=== PATIENT | male | born 1955 | race Caucasian/White ===

== ENCOUNTER 2020-10-31 17:42 | Inpatient (IN) | payer MEDICARE ==
[~2020-10-31] VITALS: Ht 170.2 cm; Wt 65.8 kg
[2020-10-31 18:54] LABS: MEAN CORPUSCULAR HEMOGLOBIN 29.7 pg (28.0-32.0); MEAN CORPUSCULAR VOLUME 89.6 fL (80.0-94.0); MEAN PLATELET VOLUME 8.2 fl (7.4-10.4); PLATELET 504 x1000/uL (130-400); RED BLOOD CELL COUNT 2.29 mill/uL (4.7-6.1); RED CELL DISTRIBUTION WIDTH 15.3 % (11.6-14.6)
[2020-10-31 18:59] LABS: HEMATOCRIT. 20.5 % (42.0-52.0); HEMOGLOBIN. 6.8 g/dL (14.0-18.0)
[2020-10-31 19:11] LABS: CHLORIDE 101 mEq/L (98-107)
[2020-10-31 20:07] LABS: PLATELET ESTIMATE INCREASED
[2020-10-31] MEDS ORDERED: IOHEXOL-350 100 ML BOTTLE ONE (22:56)
[2020-11-01] VITALS (13 sets, daily range): BP systolic 97–164; BP diastolic 41–82
[2020-11-01] MEDS ORDERED: MORPHINE SULFATE 2 MG/ML CPJ (NOT FOR IM USE) IV PRN (03:45)
[2020-11-01] MEDS ORDERED: HYDROCODONE/ACETAMINOPHEN 5/325MG TABLET PO PRN (06:15)
[2020-11-01] MEDS ORDERED: ONDANSETRON HCL 4MG/2ML INJ IV PRN (06:15)
[2020-11-01] MEDS ORDERED: DIPHENHYDRAMINE 50MG/ML VIAL IV PRN (06:15)
[2020-11-01] MEDS ORDERED: MAGNESIUM/ALUMINUM HYDROXIDE/SIMETHICONE 30ML UDC PO PRN (06:15)
[2020-11-01] MEDS ORDERED: GUAIFENESIN 200MG/10ML SUGAR FREE UDC PO PRN (06:15)
[2020-11-01] MEDS ORDERED: CLONIDINE 0.1MG TABLET PO PRN (06:15)
[2020-11-01] MEDS ORDERED: IPRATROPIUM/ALBUTEROL 0.5-3(2.5)MG/3ML NEB HHN PRN (06:15)
[2020-11-01] MEDS ORDERED: LORAZEPAM 2MG/ML CPJ IV PRN (06:15)
[2020-11-01 10:50] LABS: HEMATOCRIT. 21.2 % (42.0-52.0); HEMOGLOBIN. 7.1 g/dL (14.0-18.0); MEAN CORPUSCULAR VOLUME 90.1 fL (80.0-94.0); MEAN PLATELET VOLUME 8.3 fl (7.4-10.4); PLATELET 434 x1000/uL (130-400); RED BLOOD CELL COUNT 2.35 mill/uL (4.7-6.1); RED CELL DISTRIBUTION WIDTH 15.3 % (11.6-14.6)
[2020-11-01 11:05] LABS: TOTAL IRON BINDING CAPACITY 168 ug/dL (250-450)
[2020-11-01 11:34] LABS: FOLIC ACID (FOLATE) SERUM 6.9 ng/mL (>5.38)
[2020-11-01] MEDS ORDERED: INFLUENZA VACCINE 05/PF 0.5 ML VIAL IM ONE (12:00)
[2020-11-01 14:00] LABS: PLATELET ESTIMATE SLIGHTLY INCREASED
[2020-11-01] MEDS: SODIUM CHLORIDE 0.9% INJ 3ML FLUSH IVF SCH ×2 (16:00→20:53)
[2020-11-01] MEDS: DOCUSATE SODIUM 100MG CAPSULE PO PRN (16:00)
[2020-11-01] MEDS: OMEPRAZOLE 20MG CAPSULE EXTENDED RELEASE PO SCH (16:00)
[2020-11-01] MEDS: HYDRALAZINE 20MG/ML VIAL IV PRN (16:08)
[2020-11-01 16:25] LABS: CREATINE KINASE MB FRACTION 2.8 ng/mL (0.5-3.6)
[2020-11-01] MEDS: ACETAMINOPHEN 325MG TABLET PO PRN (17:15)
[2020-11-02] VITALS (19 sets, daily range): BP systolic 127–155; BP diastolic 48–99
[2020-11-02 00:43] LABS: HEMATOCRIT 21.4 % (42.0-52.0)
[2020-11-02 00:46] LABS: HEMOGLOBIN 6.9 g/dL (14.0-18.0)
[2020-11-02 00:48] LABS: CREATINE KINASE MB FRACTION 2.4 ng/mL (0.5-3.6)
[2020-11-02] MEDS: SODIUM CHLORIDE 0.9% INJ 3ML FLUSH IVF SCH ×3 (06:00→21:16)
[2020-11-02 07:12] LABS: HEMATOCRIT. 21.6 % (42.0-52.0); HEMOGLOBIN. 7.2 g/dL (14.0-18.0); MEAN CORPUSCULAR HEMOGLOBIN 29.9 pg (28.0-32.0); MEAN CORPUSCULAR VOLUME 89.6 fL (80.0-94.0); MEAN PLATELET VOLUME 8.3 fl (7.4-10.4); PLATELET 385 x1000/uL (130-400); RED BLOOD CELL COUNT 2.41 mill/uL (4.7-6.1)
[2020-11-02 08:04] LABS: CHLORIDE 106 mEq/L (98-107)
[2020-11-02] MEDS: POLYETHYLENE GLYCOL 3350 (17GM) 1 DOSE PACK PO SCH (08:30)
[2020-11-02] MEDS: OMEPRAZOLE 20MG CAPSULE EXTENDED RELEASE PO SCH (08:30)
[2020-11-02] MEDS ORDERED: SENNOSIDES/DOCUSATE SOD 8.6/50MG TABLET PO PRN (10:30)
[2020-11-02] MEDS: DOCUSATE SODIUM 100MG CAPSULE PO PRN (10:33)
[2020-11-02 11:11] LABS: HEMATOCRIT 26.4 % (42.0-52.0); HEMOGLOBIN 8.7 g/dL (14.0-18.0)
[2020-11-02] MEDS ORDERED: AMLODIPINE 5MG TABLET PO NR (14:00)
[2020-11-02 14:39] LABS: PLATELET ESTIMATE NORMAL
[2020-11-02] MEDS: PANTOPRAZOLE SODIUM 40 MG/VIAL IV SCH (18:23)
[2020-11-03] VITALS (10 sets, daily range): BP systolic 134–160; BP diastolic 56–130
[2020-11-03 05:50] LABS: BASOPHILS % 0.3 % (0.0-2.0); EOSINOPHILS % 1.4 % (0.0-5.0); HEMATOCRIT. 25.5 % (42.0-52.0); HEMOGLOBIN. 8.5 g/dL (14.0-18.0); LYMPHOCYTES % 7.7 % (20.0-50.0); MEAN CORPUSCULAR HEMOGLOBIN 30.3 pg (28.0-32.0); MEAN CORPUSCULAR VOLUME 90.6 fL (80.0-94.0); MEAN PLATELET VOLUME 8.4 fl (7.4-10.4); NEUTROPHILS % 82.6 % (40.0-76.0); PLATELET 414 x1000/uL (130-400); RED BLOOD CELL COUNT 2.82 mill/uL (4.7-6.1); RED CELL DISTRIBUTION WIDTH 15.3 % (11.6-14.6)
[2020-11-03 05:55] LABS: INR 1.1; PROTHROMBIN TIME 11.4 sec (9.6-11.0)
[2020-11-03] MEDS: PANTOPRAZOLE SODIUM 40 MG/VIAL IV SCH ×2 (06:21→18:51)
[2020-11-03] MEDS: SODIUM CHLORIDE 0.9% INJ 3ML FLUSH IVF SCH ×3 (06:21→21:52)
[2020-11-03 06:37] LABS: CHLORIDE 108 mEq/L (98-107)
[2020-11-03 06:42] LABS: HEPATITIS B SURFACE ANTIGEN NEGATIVE
[2020-11-03 06:46] LABS: CREATINE KINASE 549 IU/L (39-308)
[2020-11-03 07:12] LABS: HEPATITIS A AB IGM NEGATIVE (NEGATIVE)
[2020-11-03] MEDS: POLYETHYLENE GLYCOL 3350 (17GM) 1 DOSE PACK PO SCH (08:07)
[2020-11-03] MEDS: AMLODIPINE 5MG TABLET PO SCH (08:07)
[2020-11-03] MEDS ORDERED: MIDAZOLAM HCL 5 MG/5 ML VIAL IV PRN (11:32)
[2020-11-03] MEDS ORDERED: MIDAZOLAM HCL 5 MG/5 ML VIAL ONE (11:32)
[2020-11-03] MEDS ORDERED: FENTANYL CITRATE/PF 50MCG/ML 2ML VIAL ONE (11:32)
[2020-11-03] MEDS ORDERED: FENTANYL CITRATE/PF 50MCG/ML 2ML VIAL IV PRN (11:32)
[2020-11-03] MEDS ORDERED: SORBITOL 70% SOLN 30ML PO ONE (16:30)
[2020-11-03] MEDS ORDERED: SORBITOL 70% SOLN 30ML PO NR (21:00)
[2020-11-04] VITALS (7 sets, daily range): BP systolic 128–148; BP diastolic 57–75
[2020-11-04] MEDS: HYDRALAZINE 20MG/ML VIAL IV PRN (03:37)
[2020-11-04 05:57] LABS: HEMATOCRIT. 26.2 % (42.0-52.0); HEMOGLOBIN. 8.9 g/dL (14.0-18.0); MEAN CORPUSCULAR VOLUME 91.1 fL (80.0-94.0); MEAN PLATELET VOLUME 8.5 fl (7.4-10.4); PLATELET 461 x1000/uL (130-400); RED BLOOD CELL COUNT 2.87 mill/uL (4.7-6.1); RED CELL DISTRIBUTION WIDTH 15.4 % (11.6-14.6)
[2020-11-04 06:00] LABS: INR 1.1; PROTHROMBIN TIME 11.4 sec (9.6-11.0)
[2020-11-04 06:17] LABS: CHLORIDE 110 mEq/L (98-107)
[2020-11-04 06:28] LABS: CREATINE KINASE 257 IU/L (39-308)
[2020-11-04] MEDS ORDERED: SORBITOL 70% SOLN 30ML PO NR (06:30)
[2020-11-04] MEDS: SODIUM CHLORIDE 0.9% INJ 3ML FLUSH IVF SCH ×3 (06:36→22:00)
[2020-11-04] MEDS: PANTOPRAZOLE SODIUM 40 MG/VIAL IV SCH ×2 (06:36→17:13)
[2020-11-04] MEDS: POLYETHYLENE GLYCOL 3350 (17GM) 1 DOSE PACK PO SCH (09:22)
[2020-11-04] MEDS: AMLODIPINE 5MG TABLET PO SCH (09:22)
[2020-11-04 11:23] LABS: PLATELET ESTIMATE MARKEDLY INCREASED
[2020-11-04] MEDS ORDERED: MIDAZOLAM HCL 5 MG/5 ML VIAL IV PRN (18:12)
[2020-11-04] MEDS ORDERED: FENTANYL CITRATE/PF 50MCG/ML 2ML VIAL IV PRN (18:13)
[2020-11-04] MEDS ORDERED: MIDAZOLAM HCL 5 MG/5 ML VIAL ONE (18:16)
[2020-11-04] MEDS ORDERED: FENTANYL CITRATE/PF 50MCG/ML 2ML VIAL ONE (18:16)
[2020-11-04] MEDS: ACETAMINOPHEN 325MG TABLET PO PRN (22:17)
[2020-11-05] VITALS (7 sets, daily range): BP systolic 146–155; BP diastolic 55–72
[2020-11-05] MEDS: PANTOPRAZOLE SODIUM 40 MG/VIAL IV SCH (05:52)
[2020-11-05] MEDS: SODIUM CHLORIDE 0.9% INJ 3ML FLUSH IVF SCH (05:52)
[2020-11-05 06:25] LABS: BASOPHILS % 0.6 % (0.0-2.0); HEMATOCRIT. 23.2 % (42.0-52.0); HEMOGLOBIN. 7.7 g/dL (14.0-18.0); LYMPHOCYTES % 9.8 % (20.0-50.0); MEAN CORPUSCULAR HEMOGLOBIN 30.4 pg (28.0-32.0); MEAN CORPUSCULAR VOLUME 91.7 fL (80.0-94.0); MEAN PLATELET VOLUME 8.6 fl (7.4-10.4); MONOCYTES % 11.6 % (2.0-8.0); PLATELET 452 x1000/uL (130-400); RED BLOOD CELL COUNT 2.53 mill/uL (4.7-6.1); RED CELL DISTRIBUTION WIDTH 15.6 % (11.6-14.6)
[2020-11-05 06:57] LABS: CHLORIDE 111 mEq/L (98-107)
[2020-11-05 07:06] LABS: CREATINE KINASE 190 IU/L (39-308)
[2020-11-05] MEDS: AMLODIPINE 5MG TABLET PO SCH (08:33)
[2020-11-05] MEDS: POLYETHYLENE GLYCOL 3350 (17GM) 1 DOSE PACK PO SCH (08:47)
== END 2020-11-05 19:09 | disposition home health service (06) | DRG 811 ==
LOC: ER 17:42 → 5EST 20:59 → ENRESERV 21:19 → CANRESERV 21:19 → ENRESERV 21:48
PROVIDERS: ADMIT Internal Medicine; ATTEND Internal Medicine
PROC: 0DB78ZX Excision of Stomach, Pylorus, Via Natural or Artificial Opening Endoscopic, Diagnostic (ICD-10-PCS; principal; 2020-10-31)
PROC: 30233N1 Transfusion of Nonautologous Red Blood Cells into Peripheral Vein, Percutaneous Approach (ICD-10-PCS; 2020-11-01)
PROC: 0DBK8ZX Excision of Ascending Colon, Via Natural or Artificial Opening Endoscopic, Diagnostic (ICD-10-PCS; 2020-11-04)
PROC: 0DBP8ZX Excision of Rectum, Via Natural or Artificial Opening Endoscopic, Diagnostic (ICD-10-PCS; 2020-11-04)
DX: D50.9 Iron deficiency anemia, unspecified (principal); E43 Unspecified severe protein-calorie malnutrition; R65.10 Systemic inflammatory response syndrome (SIRS) of non-infectious origin without acute organ dysfunction; M62.82 Rhabdomyolysis; K29.80 Duodenitis without bleeding; K29.70 Gastritis, unspecified, without bleeding; N50.3 Cyst of epididymis; K64.8 Other hemorrhoids; N43.3 Hydrocele, unspecified; R74.01 Elevation of levels of liver transaminase levels; D72.829 Elevated white blood cell count, unspecified; F10.10 Alcohol abuse, uncomplicated; F17.210 Nicotine dependence, cigarettes, uncomplicated; I11.0 Hypertensive heart disease with heart failure; I50.9 Heart failure, unspecified; N28.1 Cyst of kidney, acquired; K44.9 Diaphragmatic hernia without obstruction or gangrene; K62.1 Rectal polyp; K63.5 Polyp of colon; K57.30 Diverticulosis of large intestine without perforation or abscess without bleeding; R00.1 Bradycardia, unspecified; R55 Syncope and collapse; K76.0 Fatty (change of) liver, not elsewhere classified; R77.8 Other specified abnormalities of plasma proteins; R16.2 Hepatomegaly with splenomegaly, not elsewhere classified; Z79.82 Long term (current) use of aspirin; Z79.899 Other long term (current) drug therapy; Z68.22 Body mass index [BMI] 22.0-22.9, adult; Z20.822 Contact with and (suspected) exposure to COVID-19
CPT/HCPCS: 36415; 71045; 74174; 76700; 76870; 80048; 80053; 82270; 82550; 82553; 82607; 82728; 82746; 82962; 83540; 83550; 83735; 83880; 84443; 84450; 84484; 85014; 85018; 85025; 85044; 86705; 86709; 86803; 86850; 86870; 86900; 86920; 87340; 87426; 88305; 88313; 90686; 93005; 93306; 93976; 97162; 97530; 99152; 99153; 99285; C9113; J0360; J2250; J2270; J3010; P9016; Q9967; G0500

== ENCOUNTER 2022-09-09 05:50 | Inpatient (IN) | payer BC, MEDICAID ==
[~2022-09-09] VITALS: Ht 172.7 cm; Wt 69.9 kg
[2022-09-09 06:16] LABS: CHLORIDE 92 mEq/L (98-107)
[2022-09-09 06:18] LABS: BASOPHILS % 0.5 % (0.0-2.0); EOSINOPHILS % 0.1 % (0.0-5.0); HEMATOCRIT. 47.1 % (42.0-52.0); HEMOGLOBIN. 15.9 g/dL (14.0-18.0); LYMPHOCYTES % 7.6 % (20.0-50.0); MEAN CORPUSCULAR HEMOGLOBIN 30.7 pg (28.0-32.0); MEAN CORPUSCULAR VOLUME 91.2 fL (80.0-94.0); MEAN PLATELET VOLUME 7.6 fl (7.4-10.4); MONOCYTES % 7.2 % (2.0-8.0); NEUTROPHILS % 84.6 % (40.0-76.0); PLATELET 268 x1000/uL (130-400); RED BLOOD CELL COUNT 5.17 mill/uL (4.7-6.1); RED CELL DISTRIBUTION WIDTH 13.3 % (11.6-14.6)
[2022-09-09 06:24] LABS: ETHANOL BLOOD < 10 mg/dL
[2022-09-09] MEDS ORDERED: SODIUM CHLORIDE 0.9% 1,000 ML IV ONE (07:00)
[2022-09-09] MEDS ORDERED: IOHEXOL-350 100 ML BOTTLE ONE (07:10)
[2022-09-09] MEDS ORDERED: HYDRALAZINE 20MG/ML VIAL IV NR (11:00)
[2022-09-09] MEDS: HYDRALAZINE HCL 50MG TABLET PO SCH ×2 (14:00→22:24)
[2022-09-09] MEDS: AMLODIPINE 2.5MG TABLET PO SCH ×2 (17:00→21:00)
[2022-09-09] MEDS ORDERED: ACETAMINOPHEN 325MG TABLET PO PRN (17:15)
[2022-09-09] MEDS ORDERED: ONDANSETRON HCL 4MG/2ML INJ IV PRN (17:15)
[2022-09-09] MEDS ORDERED: FUROSEMIDE 40MG/4ML VIAL IVP ONE (17:15)
[2022-09-09] MEDS: ENOXAPARIN 40MG/0.4ML SYR SUBCUT SCH (17:30)
[2022-09-09 22:00] VITALS: BP 137/77
[2022-09-09] MEDS: SODIUM CHLORIDE 0.9% 1,000 ML IV SCH (22:23)
[2022-09-10] VITALS: BP 140/69
[2022-09-10 01:39] LABS: CREATINE KINASE MB FRACTION 4.2 ng/mL (0.5-3.6)
[2022-09-10 04:00] VITALS: BP 112/54
[2022-09-10] MEDS: HYDRALAZINE HCL 50MG TABLET PO SCH ×3 (06:00→21:06)
[2022-09-10 07:28] LABS: BASOPHILS % 0.4 % (0.0-2.0); HEMATOCRIT. 42.2 % (42.0-52.0); HEMOGLOBIN. 14.2 g/dL (14.0-18.0); LYMPHOCYTES % 9.4 % (20.0-50.0); MEAN CORPUSCULAR HEMOGLOBIN 30.5 pg (28.0-32.0); MEAN CORPUSCULAR VOLUME 90.3 fL (80.0-94.0); MEAN PLATELET VOLUME 8.3 fl (7.4-10.4); MONOCYTES % 9.2 % (2.0-8.0); PLATELET 261 x1000/uL (130-400); RED BLOOD CELL COUNT 4.67 mill/uL (4.7-6.1); RED CELL DISTRIBUTION WIDTH 13.3 % (11.6-14.6)
[2022-09-10 08:00] VITALS: BP 127/61
[2022-09-10 08:23] LABS: CREATINE KINASE MB FRACTION 3.5 ng/mL (0.5-3.6)
[2022-09-10 08:53] LABS: VITAMIN B12 SERUM 714 pg/mL (211-911)
[2022-09-10] MEDS: ASPIRIN 81MG TABLET PO SCH (08:56)
[2022-09-10] MEDS: AMLODIPINE 2.5MG TABLET PO SCH ×2 (08:57→21:00)
[2022-09-10] MEDS: SODIUM CHLORIDE 0.9% 1,000 ML IV SCH (10:38)
[2022-09-10] MEDS: MAGNESIUM OXIDE 400MG TABLET PO SCH (11:43)
[2022-09-10 12:00] VITALS: BP_SYST 107; BP_DIAS 50; BP_DIAS 52
[2022-09-10 16:00] VITALS: BP 118/55
[2022-09-10 16:59] LABS: CLARITY URINE TURBID (CLEAR); COLOR URINE DARK YELLOW (YELLOW); KETONES URINE 1+ (NEGATIVE); LEUKOCYTE ESTERASE URINE 1+ (NEGATIVE); NITRITE URINE NEGATIVE (NEGATIVE); OCCULT BLOOD URINE NEGATIVE (NEGATIVE); PROTEIN URINE 4+ (NEGATIVE); SPECIFIC GRAVITY URINE 1.052 (1.005-1.030)
[2022-09-10] MEDS: ENOXAPARIN 40MG/0.4ML SYR SUBCUT SCH (17:10)
[2022-09-10 17:21] LABS: *AMPHETAMINES SCREEN URINE NEGATIVE (NEGATIVE); *BARBITURATES SCREEN URINE NEGATIVE (NEGATIVE); *BENZODIAZEPINES SCREEN URINE NEGATIVE (NEGATIVE); *COCAINE SCREEN URINE NEGATIVE (NEGATIVE); CANNABINOID URINE SCREEN NEGATIVE (NEGATIVE); METHADONE URINE SCREEN NEGATIVE (NEGATIVE); OPIATES URINE SCREEN NEGATIVE (NEGATIVE); PHENCYCLIDINE URINE SCREEN NEGATIVE (NEGATIVE)
[2022-09-10 20:00] VITALS: BP 107/53
[2022-09-10] MEDS ORDERED: ATORVASTATIN CALCIUM 40MG TABLET PO SCH (21:00)
[2022-09-10] MEDS: ATORVASTATIN CALCIUM 10MG TABLET PO SCH (21:23)
[2022-09-11] VITALS (7 sets, daily range): BP systolic 110–154; BP diastolic 54–85
[2022-09-11] MEDS: SODIUM CHLORIDE 0.9% 1,000 ML IV SCH (02:35)
[2022-09-11] MEDS: HYDRALAZINE HCL 50MG TABLET PO SCH ×3 (06:00→21:11)
[2022-09-11 06:40] LABS: BASOPHILS % 0.4 % (0.0-2.0); EOSINOPHILS % 0.2 % (0.0-5.0); HEMATOCRIT. 37.8 % (42.0-52.0); LYMPHOCYTES % 12.1 % (20.0-50.0); MEAN CORPUSCULAR HEMOGLOBIN 30.8 pg (28.0-32.0); MEAN CORPUSCULAR VOLUME 89.3 fL (80.0-94.0); MEAN PLATELET VOLUME 8.2 fl (7.4-10.4); MONOCYTES % 11.7 % (2.0-8.0); NEUTROPHILS % 75.6 % (40.0-76.0); PLATELET 232 x1000/uL (130-400); RED BLOOD CELL COUNT 4.24 mill/uL (4.7-6.1); RED CELL DISTRIBUTION WIDTH 13.6 % (11.6-14.6)
[2022-09-11] MEDS: ASPIRIN 81MG TABLET PO SCH (09:42)
[2022-09-11] MEDS: AMLODIPINE 2.5MG TABLET PO SCH ×2 (09:42→21:11)
[2022-09-11] MEDS: MAGNESIUM OXIDE 400MG TABLET PO SCH (09:42)
[2022-09-11] MEDS: ATORVASTATIN CALCIUM 10MG TABLET PO SCH (21:11)
[2022-09-12] VITALS: BP 146/64
[2022-09-12 04:00] VITALS: BP 147/67
[2022-09-12] MEDS: SODIUM CHLORIDE 0.9% 1,000 ML IV SCH ×2 (04:03→11:55)
[2022-09-12] MEDS: HYDRALAZINE HCL 50MG TABLET PO SCH ×2 (05:27→14:38)
[2022-09-12 07:51] LABS: BASOPHILS % 0.8 % (0.0-2.0); HEMATOCRIT. 36.8 % (42.0-52.0); HEMOGLOBIN. 12.4 g/dL (14.0-18.0); LYMPHOCYTES % 9.6 % (20.0-50.0); MEAN CORPUSCULAR HEMOGLOBIN 30.3 pg (28.0-32.0); MEAN CORPUSCULAR VOLUME 90.2 fL (80.0-94.0); MEAN PLATELET VOLUME 8.8 fl (7.4-10.4); MONOCYTES % 10.1 % (2.0-8.0); NEUTROPHILS % 78.5 % (40.0-76.0); PLATELET 246 x1000/uL (130-400); RED BLOOD CELL COUNT 4.08 mill/uL (4.7-6.1); RED CELL DISTRIBUTION WIDTH 13.3 % (11.6-14.6)
[2022-09-12 08:00] VITALS: BP 119/71
[2022-09-12 08:11] LABS: CHLORIDE 103 mEq/L (98-107)
[2022-09-12] MEDS: ASPIRIN 81MG TABLET PO SCH (08:58)
[2022-09-12] MEDS: MAGNESIUM OXIDE 400MG TABLET PO SCH (08:59)
[2022-09-12] MEDS: AMLODIPINE 2.5MG TABLET PO SCH (08:59)
[2022-09-12] MEDS ORDERED: CLOPIDOGREL 75MG TABLET PO SCH (09:00)
[2022-09-12] MEDS ORDERED: AMLO10TA80 MT (11:08)
[2022-09-12] MEDS ORDERED: CLOP75TA15 PO (11:08)
[2022-09-12] MEDS ORDERED: HYDR-4135 MT (11:08)
[2022-09-12] MEDS ORDERED: ASPI-1160 PO (11:08)
[2022-09-12 12:00] VITALS: BP 148/67
[2022-09-12 13:32] VITALS: BP 148/67
== END 2022-09-12 15:40 | disposition home or self-care (01) | DRG 64 ==
LOC: ER 05:50 → 7WST 08:56 → EDBEDREQTM 09:22 → EDBEDREQ 09:22 → EDBEDREQSVC 09:22
PROVIDERS: ADMIT Internal Medicine; ATTEND Internal Medicine
PROC: 4A00X4Z Measurement of Central Nervous Electrical Activity, External Approach (ICD-10-PCS; principal; 2022-09-10)
DX: I63.9 Cerebral infarction, unspecified (principal); N17.0 Acute kidney failure with tubular necrosis; E87.1 Hypo-osmolality and hyponatremia; G93.40 Encephalopathy, unspecified; I11.0 Hypertensive heart disease with heart failure; J44.9 Chronic obstructive pulmonary disease, unspecified; I50.9 Heart failure, unspecified; R29.712 NIHSS score 12; I34.0 Nonrheumatic mitral (valve) insufficiency; F17.210 Nicotine dependence, cigarettes, uncomplicated; R29.6 Repeated falls; Z79.02 Long term (current) use of antithrombotics/antiplatelets; Z79.82 Long term (current) use of aspirin; Z79.899 Other long term (current) drug therapy
CPT/HCPCS: 36415; 70486; 70496; 70498; 70551; 71045; 76770; 80048; 80053; 80061; 80305; 80320; 81003; 82550; 82553; 82607; 82962; 83036; 83735; 84100; 84153; 84443; 84484; 85025; 93005; 93306; 93970; 95816; 97162; 99291; C1893; J0360; J1650; J7030; Q9967; A4315; G0103; G0480